=== PATIENT | male | born 1955 | race Caucasian/White ===

== ENCOUNTER 2018-10-29 15:45 | Emergency (ER) | payer OTHER ==
[2018-10-29] MEDS ORDERED: FENTANYL 100MCG/2ML SOL IV ONE ×2 (16:21→18:54)
[2018-10-29] MEDS ORDERED: FENTANYL 100MCG/2ML SOL ONE ×2 (16:26→18:56)
[2018-10-29] MEDS ORDERED: SODIUM CHLORIDE 0.9% FLUSH 10 ML SOL IV PRN (16:32)
[2018-10-29 16:35] VITALS: RESP 16
[2018-10-29 17:03] VITALS: TEMP 96
[2018-10-29] MEDS ORDERED: LIDOCAINE HCL 2% MPF 10 ML SOL SC ONE ×2 (17:15→17:30)
[2018-10-29] MEDS ORDERED: LIDOCAINE HCL 2% MPF 10 ML SOL ONE ×2 (17:25→17:44)
[2018-10-29] MEDS ORDERED: BACITRACIN 500 U/GM OIN TOP ONE ×2 (18:11→18:25)
[2018-10-29 18:16] VITALS: BP 161/96; PULSE 98; O2SAT 96
== END 2018-10-29 19:35 | disposition home or self-care (01) | DRG 90 ==
LOC: ED 15:45
DX: S06.0X9A Concussion with loss of consciousness of unspecified duration, initial encounter (principal); W11.XXXA Fall on and from ladder, initial encounter; S01.111A Laceration without foreign body of right eyelid and periocular area, initial encounter; S20.211A Contusion of right front wall of thorax, initial encounter; R40.2362 Coma scale, best motor response, obeys commands, at arrival to emergency department; R40.2142 Coma scale, eyes open, spontaneous, at arrival to emergency department; R40.2252 Coma scale, best verbal response, oriented, at arrival to emergency department
CPT/HCPCS: 12051; 70450; 71100; 72125; 96374; 99283; 99285; J3010; A6402; A9270-GY

== ENCOUNTER 2018-10-30 00:45 | Emergency (ER) | payer OTHER ==
[2018-10-30 00:46] VITALS: O2SAT 96
[2018-10-30] MEDS ORDERED: KETOROLAC TROMETHAMINE 30 MG/ML SOL IM ONE (01:02)
[2018-10-30] MEDS ORDERED: FENTANYL 100MCG/2ML SOL IM ONE (01:03)
[2018-10-30] MEDS ORDERED: APAP/HYDROCODONE 1 EACH TABLET PO ONE (01:06)
[2018-10-30] MEDS ORDERED: ONDANSETRON 4 MG ODT BU ONE (01:06)
[2018-10-30 01:08] VITALS: BP 162/95; PULSE 90; RESP 20; TEMP 97.3
[2018-10-30] MEDS ORDERED: FENTANYL 100MCG/2ML SOL ONE (01:09)
[2018-10-30] MEDS ORDERED: APAP/HYDROCODONE 1 EACH TABLET ONE (01:09)
[2018-10-30] MEDS ORDERED: KETOROLAC TROMETHAMINE 30 MG/ML SOL ONE (01:09)
[2018-10-30] MEDS ORDERED: ONDANSETRON 4 MG ODT ONE (01:10)
== END 2018-10-30 01:40 | disposition home or self-care (01) | DRG 950 ==
LOC: ED 00:45
DX: S06.0X0D Concussion without loss of consciousness, subsequent encounter (principal)
CPT/HCPCS: 96372; 99282; 99283; J1885; J3010; A9270-GY